=== PATIENT | male | born 1985 | race African-American/Black ===

== ENCOUNTER 2022-05-08 20:23 | Emergency (ER) | payer MEDICAID ==
[~2022-05-08] VITALS: Ht 165.1 cm; Wt 66.0 kg
[2022-05-08 21:34] VITALS: BP 143/110
[2022-05-08 22:18] LABS: CLARITY URINE TURBID (CLEAR); COLOR URINE DARK YELLOW (YELLOW); KETONES URINE 2+ (NEGATIVE); LEUKOCYTE ESTERASE URINE 3+ (NEGATIVE); NITRITE URINE POSITIVE (NEGATIVE); OCCULT BLOOD URINE 2+ (NEGATIVE); PROTEIN URINE 2+ (NEGATIVE); SPECIFIC GRAVITY URINE 1.028 (1.005-1.030)
[2022-05-09] MEDS ORDERED: SULF1TAB48 MT (00:17)
[2022-05-09] MEDS ORDERED: PHEN-815 MT (00:17)
[2022-05-09] MEDS ORDERED: IBUP-2029 MT (00:17)
== END 2022-05-09 00:40 | disposition home or self-care (01) ==
LOC: ER 20:23
DX: N39.0 Urinary tract infection, site not specified (principal); B96.20 Unspecified Escherichia coli [E. coli] as the cause of diseases classified elsewhere; R03.0 Elevated blood-pressure reading, without diagnosis of hypertension
CPT/HCPCS: 81003; 87077; 87186; 99283

== ENCOUNTER 2022-05-24 17:35 | Emergency (ER) | payer MEDICAID ==
[~2022-05-24] VITALS: Ht 165.1 cm; Wt 66.0 kg
[~2022-05-24 17:35] MED LIST: IBUP-2029 MT; PHEN-815 MT; SULF1TAB48 MT
[2022-05-24 17:45] VITALS: BP 108/84
== END 2022-05-24 19:30 | disposition left against medical advice (07) ==
LOC: ER 17:35
DX: Z53.21 Procedure and treatment not carried out due to patient leaving prior to being seen by health care provider (principal)